=== PATIENT | female | born 1930 | race Caucasian/White ===

== ENCOUNTER → 2017-12-05 | Outpatient (CLI) | payer OTHER | LOC: CIMAGING 15:36 | PROVIDERS: ATTEND Family Medicine Geriatric Medicine | DX: M15.4 Erosive (osteo)arthritis (principal); M19.072 Primary osteoarthritis, left ankle and foot | CPT/HCPCS: 73630-PO; 93971-PO ==

== ENCOUNTER → 2018-04-15 | Outpatient (CLI) | payer OTHER | LOC: BRMIMAGING 11:10 | PROVIDERS: ATTEND Registered Nurse | DX: Z13.820 Encounter for screening for osteoporosis (principal); M85.89 Other specified disorders of bone density and structure, multiple sites; Z78.0 Asymptomatic menopausal state ==

== ENCOUNTER → 2018-06-11 | Outpatient (CLI) | payer OTHER | LOC: CIMAGING 11:15 | PROVIDERS: ATTEND Family Medicine Geriatric Medicine | DX: M50.322 Other cervical disc degeneration at C5-C6 level (principal); M51.34 Other intervertebral disc degeneration, thoracic region; M51.36 Other intervertebral disc degeneration, lumbar region; M85.88 Other specified disorders of bone density and structure, other site | CPT/HCPCS: 72050-PO; 72070-PO; 72100-PO ==